=== PATIENT | female | born 1965 | race Caucasian/White ===

== ENCOUNTER 2023-01-09 05:10 | Day surgery (SDC) | payer BC ==
[2023-01-08 10:54] VITALS: BMI 34.9
[2023-01-09 09:46] VITALS: TEMP 97.5
[2023-01-09 10:08] VITALS: RESP 13
[2023-01-09 10:15] VITALS: BP 117/78; PULSE 78
== END 2023-01-09 10:30 | disposition home or self-care (01) ==
LOC: JASU-ENDO 05:10
PROVIDERS: ATTEND Internal Medicine Gastroenterology
PROC: 0DB68ZX Excision of Stomach, Via Natural or Artificial Opening Endoscopic, Diagnostic (ICD-10-PCS; 2023-01-09)
PROC: 0DJD8ZZ Inspection of Lower Intestinal Tract, Via Natural or Artificial Opening Endoscopic (ICD-10-PCS; principal; 2023-01-09 08:30)
DX: K92.1 Melena (principal); K57.30 Diverticulosis of large intestine without perforation or abscess without bleeding; K29.50 Unspecified chronic gastritis without bleeding; R19.09 Other intra-abdominal and pelvic swelling, mass and lump
CPT/HCPCS: 88305-TC; 88342-TC

== ENCOUNTER 2024-01-22 04:29 | Day surgery (SDC) | payer BC ==
[2024-01-15 11:59] VITALS: BMI 35.1
[2024-01-22 08:22] VITALS: TEMP 98.6
[2024-01-22 08:38] VITALS: RESP 20
[2024-01-22 09:11] VITALS: BP 143/88; PULSE 74
== END 2024-01-22 09:05 | disposition home or self-care (01) ==
LOC: JASU-ENDO 04:29
PROVIDERS: ATTEND Internal Medicine Gastroenterology
PROC: 0DB68ZX Excision of Stomach, Via Natural or Artificial Opening Endoscopic, Diagnostic (ICD-10-PCS; principal; 2024-01-22 08:00)
DX: R19.09 Other intra-abdominal and pelvic swelling, mass and lump (principal); K25.3 Acute gastric ulcer without hemorrhage or perforation; K21.00 Gastro-esophageal reflux disease with esophagitis, without bleeding
CPT/HCPCS: 88305-TC; 88342-TC